=== PATIENT | male | born 1945 | race Caucasian/White ===

== ENCOUNTER 2022-07-10 11:43 | Outpatient (CLI) | payer MEDICARE, OTHER | END 2022-07-10 11:44 | disposition home or self-care (01) | LOC: CSHCT 11:43 | PROVIDERS: ATTEND Internal Medicine Cardiovascular Disease | DX: Z01.810 Encounter for preprocedural cardiovascular examination (principal); I48.0 Paroxysmal atrial fibrillation; Z01.818 Encounter for other preprocedural examination; Z20.822 Contact with and (suspected) exposure to COVID-19 | CPT/HCPCS: 71275; 80053; 81003; 85027; 85610; 85730; 86850; 86900; 86901; 87811; 93005; 93010 ==

== ENCOUNTER 2022-11-13 09:15 | Outpatient (CLI) | payer MEDICARE, OTHER ==
[2022-11-13] MEDS ORDERED: Iopamidol 370 76% 100 ML VIAL ONE (10:19)
== END 2022-11-13 09:16 | disposition home or self-care (01) ==
LOC: CSHCT 09:15
PROVIDERS: ATTEND Internal Medicine Cardiovascular Disease
DX: I48.0 Paroxysmal atrial fibrillation (principal); Z95.818 Presence of other cardiac implants and grafts; R91.1 Solitary pulmonary nodule; I25.10 Atherosclerotic heart disease of native coronary artery without angina pectoris; I25.84 Coronary atherosclerosis due to calcified coronary lesion
CPT/HCPCS: 71275; 82565; Q9967

== ENCOUNTER 2023-01-12 07:23 | Outpatient (CLI) | payer MEDICARE, OTHER ==
[2023-01-12] MEDS ORDERED: Iopamidol 370 76% 100 ML VIAL ONE (09:15)
== END 2023-01-12 07:24 | disposition home or self-care (01) ==
LOC: CSHCT 07:23
PROVIDERS: ATTEND Internal Medicine Cardiovascular Disease
DX: I48.0 Paroxysmal atrial fibrillation (principal); Z95.818 Presence of other cardiac implants and grafts
CPT/HCPCS: 71275; 82565